=== PATIENT | female | born 1985 | race African-American/Black ===

== ENCOUNTER 2020-05-04 00:20 | Emergency (ER) | payer MEDICAID, OTHER ==
[~2020-05-04] VITALS: Ht 167.6 cm; Wt 84.1 kg
[~2020-05-04 00:20] MED LIST: CHOL100018 PO; DIVA-80 PO; HALO10 PO; LITH300C3 PO
[2020-05-04] MEDS ORDERED: SODIUM CHLORIDE 0.9% 1,000 ML IV ONE ×2 (01:00→04:00)
[2020-05-04 01:45] LABS: BASOPHILS % (AUTO) 2.1 % (0.0-2.0); EOSINOPHILS % (AUTO) 1.6 % (1.0-6.0); HEMATOCRIT 40.8 % (36-46); HEMOGLOBIN 14.3 g/dL (12.0-16.0); LYMPHOCYTES # (AUTO) 3.7 K/uL (1.0-4.8); LYMPHOCYTES % (AUTO) 31.4 % (22.0-44.0); MEAN CORPUSCULAR HEMOGLOBIN 30.4 pg (26.0-34.0); MEAN CORPUSCULAR HGB CONC 34.9 G/dL (31.0-37.0); MEAN CORPUSCULAR VOLUME 87 fL (80-100); MONOCYTES # (AUTO) 0.6 K/uL (0.1-1.0); MONOCYTES % (AUTO) 5.1 % (2.0-9.0); NEUTROPHILS % (AUTO) 59.8 % (40.0-70.0); PLATELET COUNT (AUTO) 289 K/uL (150-450); RED BLOOD CELL COUNT(AUTO) 4.69 MIL/uL (4.00-5.20); RED CELL DISTRIBUTION WIDTH 13.5 % (11.5-14.5)
[2020-05-04 01:50] LABS: ANION GAP 17 mmol/L (8-16); CARBON DIOXIDE 21 mmol/L (22-29); CHLORIDE 105 mmol/L (98-107); CREATININE 0.73 mg/dL (0.60-1.30); GLOMERULAR FILTR. RATE CALC > 60 mL/min (>60); GLUCOSE,RANDOM 83 mg/dL (70-110); POTASSIUM 3.5 mmol/L (3.5-5.1); SODIUM SERUM 143 mmol/L (136-145); UREA NITROGEN, BLOOD 5 mg/dL (7-18)
[2020-05-04 01:54] LABS: APPEARANCE,URINE CLEAR (CLEAR); BILIRUBIN,URINE NEGATIVE (NEGATIVE); GLUCOSE, URINE (UA) NEGATIVE (NEGATIVE); KETONES,URINE NEGATIVE (NEGATIVE); LEUKOCYTE ESTERASE ,URINE NEGATIVE (NEGATIVE); NITRATE,URINE NEGATIVE (NEGATIVE); OCCULT BLOOD,URINE NEGATIVE (NEGATIVE); PH,URINE 5.5 (5.0-8.0); PROTEIN,URINE NEGATIVE (NEGATIVE); UROBILINOGEN,URINE 0.2 mg/dL (<=1.0)
[2020-05-04 02:00] LABS: LITHIUM < 0.20 mmol/L (0.60-1.20)
[2020-05-04 02:00] LABS: AMPHET/METH SCREEN,URINE NEGATIVE (NEGATIVE); BARBITURATE SCREEN, URINE NEGATIVE (NEGATIVE); BENZODIAZEPINES SCREEN,URINE NEGATIVE (NEGATIVE); CANNABINOID SCREEN,URINE NEGATIVE (NEGATIVE); COCAINE SCREEN,URINE NEGATIVE (NEGATIVE); METHADONE SCREEN, URINE NEGATIVE (NEGATIVE); OPIATE SCREEN,URINE NEGATIVE (NEGATIVE); PHENCYCLIDINE SCREEN,URINE NEGATIVE (NEGATIVE)
[2020-05-04 02:02] LABS: ALANINE AMINOTRANSFERASE 47 U/L (12-78); ALBUMIN 3.2 g/dL (3.4-5.0); ALKALINE PHOSPHATASE 129 U/L (46-116); ASPARTATE AMINOTRANSFERASE 20 U/L (15-37); BILIRUBIN,TOTAL 0.1 mg/dL (0.1-1.0); HCG,QUANTITATIVE < 1 mIU/mL (0-6); LIPASE 80 U/L (73-393); TOTAL PROTEIN, SERUM 8.5 g/dL (6.4-8.2); VALPROIC ACID < 3 mcg/mL (50-100)
[2020-05-04] MEDS ORDERED: KETOROLAC TROMETHAMINE 30 MG/ML VIAL IVP ONE (02:30)
[2020-05-04 03:08] LABS: BACTERIA,URINE Rare /HPF (None Seen); RBC,URINE 0-2 /HPF (0-2); SQUAMOUS EPITHELIAL CELL,UR Few /LPF (None Seen); WBC,URINE 0-2 /HPF (0-5)
[2020-05-04 03:50] LABS: LACTIC ACID 2.3 mmol/L (0.4-2.0)
[2020-05-04] MEDS ORDERED: CefTRIAXone SODIUM 1 GM/VIAL IM ONE (04:00)
[2020-05-04] MEDS ORDERED: AZITHROMYCIN 500 MG TABLET PO ONE (04:00)
[2020-05-04] MEDS ORDERED: LIDOCAINE/PF 1% 2 ML VIAL IM ONE (04:00)
[2020-05-04 05:25] VITALS: BP 126/74
== END 2020-05-04 05:26 | disposition home or self-care (01) ==
LOC: EMS 00:21
DX: E87.2 Acidosis (principal); F31.9 Bipolar disorder, unspecified; F17.210 Nicotine dependence, cigarettes, uncomplicated
CPT/HCPCS: 36415; 76856; 80053; 80164; 80178; 80307; 81001; 83605; 83690; 84702; 85025; 87491; 87591; 96361; 96372; 96374; 99284; A9575; G0480; J0696; J1885; J3490

== ENCOUNTER 2023-06-09 21:20 | Emergency (ER) | payer OTHER ==
[~2023-06-09 21:20] MED LIST changes: -DIVA-80 PO; +DIVA500T53 PO; -HALO10 PO; +HALO10TA21 PO
== END 2023-06-09 22:30 | disposition left against medical advice (07) ==
LOC: EMS 21:23
DX: R10.9 Unspecified abdominal pain (principal); Z53.21 Procedure and treatment not carried out due to patient leaving prior to being seen by health care provider
CPT/HCPCS: 99281; Z7502

== ENCOUNTER 2024-06-12 14:52 | Emergency (ER) | payer OTHER ==
[~2024-06-12] VITALS: Ht 167.6 cm; Wt 75.0 kg
[~2024-06-12 14:52] MED LIST changes: +DIVA-153 PO; -DIVA500T53 PO
[2024-06-12 15:01] VITALS: BP 140/86; PULSE 88; RESP 16; TEMP 98.2; O2SAT 100
[2024-06-12] MEDS ORDERED: OLAN10TA74 PO (15:04)
[2024-06-12] MEDS ORDERED: BENZ0.5T52 PO (15:04)
[2024-06-12] MEDS ORDERED: CHOL200074 PO (15:04)
[2024-06-12] MEDS ORDERED: NORE0.3520 PO (15:04)
== END 2024-06-12 16:55 | disposition home or self-care (01) ==
LOC: EMS 14:52
DX: B35.3 Tinea pedis (principal); F20.9 Schizophrenia, unspecified; F17.210 Nicotine dependence, cigarettes, uncomplicated; Z79.899 Other long term (current) drug therapy
CPT/HCPCS: 99282; Z7502

== ENCOUNTER 2024-09-10 15:53 | Emergency (ER) | payer OTHER ==
[~2024-09-10] VITALS: Ht 167.6 cm; Wt 90.9 kg
[~2024-09-10 15:53] MED LIST changes: +BENZ0.5T52 PO; -CHOL100018 PO; +CHOL200074 PO; -DIVA-153 PO; -HALO10TA21 PO; -LITH300C3 PO; +NORE0.3520 PO; +OLAN10TA74 PO
[2024-09-10 16:03] VITALS: TEMP 98.7
[2024-09-10] MEDS ORDERED: TRAZ-252 PO (16:03)
[2024-09-10 17:26] LABS: APPEARANCE,URINE CLEAR (CLEAR); GLUCOSE, URINE (UA) NEGATIVE (NEGATIVE); LEUKOCYTE ESTERASE ,URINE NEGATIVE (NEGATIVE); NITRATE,URINE NEGATIVE (NEGATIVE); OCCULT BLOOD,URINE LARGE (NEGATIVE); SPECIFIC GRAVITIY, URINE 1.020 (1.003-1.030)
[2024-09-10 17:30] LABS: PLATELET COUNT (AUTO) 296 K/uL (150-450); RED BLOOD CELL COUNT(AUTO) 4.42 MIL/uL (4.00-5.20); RED CELL DISTRIBUTION WIDTH 13.2 % (11.5-14.5); WHITE BLOOD COUNT (AUTO) 9.3 K/uL (4.5-11.0)
[2024-09-10 17:35] LABS: SQUAMOUS EPITHELIAL CELL,UR Rare /LPF (None Seen)
[2024-09-10 17:38] LABS: CALCIUM, TOTAL 9.1 mg/dL (8.8-10.5); CREATININE 0.77 mg/dL (0.60-1.30); GLOMERULAR FILTR. RATE CALC > 60 mL/min (>60); GLUCOSE,RANDOM 91 mg/dL (70-110); SODIUM SERUM 136 mmol/L (136-145); UREA NITROGEN, BLOOD 6 mg/dL (7-18)
[2024-09-10] MEDS: SODIUM CHLORIDE 0.9% 1,000 ML IV ONE (17:45)
[2024-09-10] MEDS: KETOROLAC TROMETHAMINE 30 MG/ML VIAL IVP ONE (17:45)
[2024-09-10] MEDS: ACETAMINOPHEN 500 MG TABLET PO ONE (17:46)
[2024-09-10] MEDS: ONDANSETRON HCL 4 MG/2 ML VIAL IVP ONE (17:46)
[2024-09-10 19:20] VITALS: BP 128/86; PULSE 100; RESP 18; O2SAT 98
[2024-09-10] MEDS ORDERED: IBUP-1554 PO (19:25)
[2024-09-10] MEDS ORDERED: ACET-66 PO (19:25)
== END 2024-09-10 19:59 | disposition home or self-care (01) ==
LOC: EMS 15:53
DX: N92.1 Excessive and frequent menstruation with irregular cycle (principal); F31.9 Bipolar disorder, unspecified; F20.9 Schizophrenia, unspecified; F17.210 Nicotine dependence, cigarettes, uncomplicated
CPT/HCPCS: 99284; 96374; 96375; 80048; 81001; 84703; 85025; 36415; J1885; J2405; J7030